=== PATIENT | male | born 1985 | race Caucasian/White ===

== ENCOUNTER 2019-09-03 16:17 | Emergency (ER) | payer SELFPAY ==
[~2019-09-03] VITALS: Ht 180.3 cm; Wt 154.5 kg
[~2019-09-03 16:17] MED LIST: AMOXICILLIN 8751 TAB PO; FLEXERIL 1010 MG/TAB PO; NORCO 325 MG-51 TAB PO; NORCO 325 MG-7.1 TAB PO
[2019-09-03 20:53] VITALS: TEMP 98.8
[2019-09-03 22:34] VITALS: BP 120/85; PULSE 78
== END 2019-09-03 22:34 | disposition short-term general hospital (02) ==
LOC: COL.ER 16:17
DX: S02.832A Fracture of medial orbital wall, left side, initial encounter for closed fracture (principal); W22.8XXA Striking against or struck by other objects, initial encounter; Y92.59 Other trade areas as the place of occurrence of the external cause
CPT/HCPCS: J0330; J0690; J2405; J2704; J3010